=== PATIENT | female | born 1985 | race American Indian/Alaskan Native ===

== ENCOUNTER 2021-02-10 06:02 | Inpatient (IN) | payer BC ==
--- NOTE | 2021-02-07 10:24 | Anesthesia Consultation ---
Anesthesia Consult and Med Hx Date of service: 02/10/21 - Airway Anesthetic Teeth Evaluation: Good ROM Head & Neck: Adequate Mental/Hyoid Distance: Adequate Mallampati Class: Class II Intubation Access Assessment: Probably Good - Pulmonary Exam CTA: Yes - Cardiac Exam Cardiac Exam: RRR - Pre-Operative Health Status ASA Pre-Surgery Classification: ASA2 Proposed Anesthetic Plan: General Nerve Block: TAP - Pulmonary Hx Smoking: Yes (1/4 PPD) Hx Asthma: Yes (childhood; no recent inhaler use) Hx Respiratory Symptoms: No - Cardiovascular System Hx Hypertension: No - Central Nervous System CVA: No - Endocrine Hx Renal Disease: No Hx Liver Disease: No Hx Insulin Dependent Diabetes: No Hx Non-Insulin Dependent Diabetes: No Hx Thyroid Disease: No - Other Systems Hx Obesity: No - Additional Comments Anesthesia Medical History Comments: No prior GA. No FHx anesthetic complications.
[2021-02-07 10:35] LABS: Basophils % (Auto) 0.4 % (0.0-1.8); Eosinophils # (Auto) 0.1 K/mm3 (0.0-0.4); Eosinophils % (Auto) 2.4 % (0.0-4.3); Hematocrit 29.7 % (30.3-42.9); Hemoglobin 9.5 gm/dl (10.1-14.3); Lymphocytes % (Auto) 39.9 % (13.4-35.0); Mean Corpuscular HGB Conc 32 % (30-34); Mean Corpuscular Volume 78 fl (79-97); Monocytes # (Auto) 0.3 K/mm3 (0.0-0.8); Monocytes % (Auto) 6.4 % (0.0-7.3); Platelet Count 409 K/mm3 (140-440); Red Blood Count 3.82 M/mm3 (3.65-5.03)
--- NOTE | 2021-02-07 10:35 | History and Physical Report ---
History of Present Illness Date of examination: 02/04/21 History of present illness: Patient has been reassessed/reevaluated. H&P has been reviewed. No interval changes. This is a 35 years old female who presents with uterine fibroids. She complains of pelvic pain, pelvic pressure and menorrhagia, but denies abdominal pain, abdominal pressure and intermenstrual bleeding. Treatment tried to date includes NSAIDs. Prior to today's visit the patient has had US of pelvis which revealed large leiomyomas measuring 8cm and 9cm in diameter. Patient's symptoms when present disrupts her normal daily activities Patient desires definitive treatment . Vital Signs: Patient Profile: 35 Years Old Female LMP: 01/18/2021 Height: 62 inches Weight: 143 pounds BMI: 26.15 Temp: 97.6 degrees F BP sittin / 80 (left arm) Menstrual History: LMP (date): 01/18/2021 Current Method of Contraception: None Date of Last Pap Smear: 11/01/2020 Past History : 0 Term Births: 0 Premature Births: 0 Living Children: 0 Para: 0 Mult. Births: 0 Prev : 0 Aborta: 0 Elect. Ab: 0 Spont. Ab: 0 Ectopics: 0 [employer] History Operations: Negative Past Surgical History Abnormal PAP: negative Uterine Anomaly: positive fibroids Infection History HIV Risk Eval: no Personal hx. of genital herpes: no Hx of STD: gonorrhea Current Allergies (reviewed today): No known allergies Past Medical History: Peptic Ulcer Disease (2011) hospitalized Fibroids (10/2020) Past Surgical History: Negative Past Surgical History Family History Summary: Other Family Member - Has No Family History of Ovarvian Cancer - Entered On: 11/01/2020 Other Family Member - Has Family History Colon Cancer - Entered On: 11/01/2020 Other Family Member - Has No Family History of Breast Cancer - Entered On: 11/01/2020 Other Family Member - Has Family History of Renal Disease - Entered On: 11/01/2020 Other Family Member - Has Family History of Hypertension - Entered On: 11/01/2020 Other Family Member - Has Family History of CVA or Stroke - Entered On: 11/01/2020 Social History: Marital Status: Single Children: 0 Occupation: commercial parts professional Smoking History: Patient currently smokes every day. Risk Factors: Smoked Tobacco Use: Current every day smoker Cigarettes: Yes -- 4 cigs per day,Smokeless Tobacco Use: Never Counseled to quit/cut down: no Passive smoke exposure: no Drug use: no HIV high-risk behavior: no Caffeine use: 0 drinks per day Alcohol use: yes Type: occ/ wine Exercise: yes Times per week: 6 Seatbelt use: 100 % PAP Smear History: Date of Last PAP Smear: 11/01/2020 Review of Systems General Complains of fatigue. Denies fever, chills, sweats, anorexia, weakness, malaise, weight loss and sleep disorder. Complains of urinary frequency, menorrhagia, pelvic pain and painful periods. Denies vaginal discharge, incontinence, dysuria, hematuria, amenorrhea, abnormal vaginal bleeding, genital sores, decreased libido, painful sex, urinary urgency, hot flashes, vaginal dryness, vaginal itching and vaginal odor. CV Denies chest pains, palpitations, syncope, dyspnea on exertion, orthopnea, PND and peripheral edema. Resp Denies cough, dyspnea at rest, excessive sputum, hemoptysis, wheezing and pleurisy. GI Denies nausea, vomiting, diarrhea, constipation, change in bowel habits, abdominal pain, melena, hematochezia, jaundice, gas/bloating, indigestion/heartburn, dysphagia and odynophagia. Breast Denies left breast lump, right breast lump, nipple discharge, bloody discharge from nipple, breast pain, abnormal mammogram and breast enlargement. Psych Denies depression, anxiety, irritability and mood swings. Past History Past Medical History: other (SEE HPI FOR DETAILS) Past Surgical History: Other (SEE HPI FOR DETAILS) Social history: single, smoking, full code, other (SEE HPI FOR DETAILS) Family history: other (SEE HPI FOR DETAILS) Medications and Allergies Allergies Allergy/AdvReac Type Severity Reaction Status Date / Time No Known Allergies Allergy Verified 02/04/21 14:22 Home Medications Medication Instructions Recorded Confirmed Last Taken Type Famotidine [Acid-Pep] 20 mg PO DAILY PRN 02/04/21 02/04/21 Unknown History Ibuprofen 800 mg PO PRN 02/04/21 02/04/21 Unknown History Malanta 1 dose PO 1XW 02/04/21 Unknown History Active Meds: Active Medications Acetaminophen (Acetaminophen 500 Mg Tab) 1,000 mg PO PREOP AILYN Celecoxib (Celecoxib 200 Mg Cap) 200 mg PO PREOP NR Fentanyl (Fentanyl 100 Mcg/2 Ml Inj) 100 mcg IV ONCE PRN PRN Reason: sedation for nerve block Gabapentin (Gabapentin 300 Mg Cap) 300 mg PO PREOP NR Cefazolin Sodium (Ancef/Sterile Water 2 Gm/20 Ml) 2 gm in 20 mls @ 80 mls/hr IV PREOP NR; Protocol Stop: 02/10/21 23:59 Lactated Ringer's (Lactated Ringers) 1,000 mls @ 100 mls/hr IV DIRECT AILYN Stop: 02/10/21 23:59 Midazolam HCl (Midazolam 2 Mg/2 Ml Inj) 2 mg IV PREOP NR Scopolamine (Scopolamine Transdermal Patch 72 Hr) 1 each TD PREOP NR Review of Systems Constitutional: other (SEE HPI FOR DETAILS) Exam - Physical Exam Narrative exam: HEENT: normocephalic, no lesions or deformities Skin no significant abnormal lesions or rashes Chest: respiratory effort normal, clear to auscultation CV: regular, normal S1-S2, no murmur, no rub, no gallop Abdomen: normal bowel sounds, soft, nontender, no HSM Neuro: no gross anomalities Extremities: no clubbing, cyanosis, or edema [employer] Exams Vulva/Vagina: No lesions, normal BUS, normal rugae Cervix: No lesions; no cervical motion tenderness Uterus: Enlarged 16- 18 week size Adnexae: Unable to palpate due to uterine size Rectovaginal: exam defered Results - Labs CBC & Chem 7: 02/07/21 09:45 02/07/21 08:00 Assessment and Plan - Patient Problems (1) Intramural leiomyoma of uterus Current Visit: No Status: Acute Plan to address problem: Diagnosis explained to patient . Questions answered. Discussed with patient various medical, surgical and radiological therapies common for treatment including expectant management, myomectomy hysterectomy and uterine artery embolization Patient desires to retain future fertility. She desires myome ctomy. Discussed risks and benefits of laparotomy and robotic assisted approaches Patient desires transabdominal myomectomy. Discuss the risks of the surgery including infection, bleeding possibly heavy enough to require a blood transfusion, possible damage to bowel, bladder or ureter. Patient understands that there is a possibility that a hysterectomy maybe indicated for severe bleeding not resoved with conservative measures. Her questions were answered. Patient understands and desires to proceed (2) Menorrhagia Current Visit: No Status: Acute Qualifiers: Menorrhagia type: with regular cycle Qualified Code(s): N92.0 - Excessive and frequent menstruation with regular cycle Plan to address problem: Probably secondary to # 1 (3) Dysmenorrhea Current Visit: No Status: Acute Plan to address problem: Probably secondary to # 1 (4) Pelvic pain Current Visit: No Status: Acute Plan to address problem: Probably secondary to # 1 (5) Chronic blood loss anemia Current Visit: No Status: Acute Plan to address problem: Probably secondary to # 2 (6) Peptic ulcer disease Current Visit: No Status: Chronic
[2021-02-07 10:43] LABS: Red Cell Distribution Width 21.5 % (13.2-15.2)
[2021-02-07 10:53] LABS: Blood Urea Nitrogen 11 mg/dL (7-17); Calcium 9.3 mg/dL (8.4-10.2); Hemolysis Index 0
[2021-02-07 11:16] LABS: BUN/Creatinine Ratio 16
[~2021-02-10 06:02] MED LIST: ACETAMINOPHEN 500 MG TAB PO SCH; CELECOXIB 200 MG CAP PO NR; GABAPENTIN 300 MG CAP PO NR; LACTATED RINGERS 1,000 ML IV SCH; MIDAZOLAM 2 MG/2 ML INJ IV NR; SCOPOLAMINE TRANSDERMAL PATCH 72 HR TD NR; fentaNYL 100 MCG/2 ML INJ IV PRN
[2021-02-10] MEDS ORDERED: ceFAZolin/Water 2 GM/20 ML 2 GM/20 ML SYRINGE IV NR (07:00)
[2021-02-10] MEDS ORDERED: dexAMETHasone 20 MG/5 ML VIAL ONE ×3 (07:12→08:30)
[2021-02-10] MEDS ORDERED: BUPIVACAINE/PF (0.25%) 2.5 MG/ML 30 ML VIAL INFILTRATI ONE (07:12)
[2021-02-10] MEDS ORDERED: cloNIDine/PF 1,000 MCG/10 ML VIAL EP ONE (07:13)
[2021-02-10] MEDS ORDERED: fentaNYL 100 MCG/2 ML INJ ONE (07:16)
[2021-02-10] MEDS ORDERED: propofoL 200 MG/20 ML VIAL IV ONE (07:17)
--- NOTE | 2021-02-10 07:21 | Anesthesia Day of Surgery ---
Anesthesia Day of Surgery - Day of Surgery Patient Examined: Yes Patient H&P Reviewed: Yes Patient is NPO: Yes
[2021-02-10] MEDS ORDERED: CITRIC ACID-SOD CITRATE 500 ML IV ONE (07:25)
[2021-02-10] MEDS ORDERED: ONDANSETRON 4 MG/2 ML INJ IV PRN (07:30)
[2021-02-10] MEDS ORDERED: SODIUM CHLORIDE 0.9% 100 ML ONE (07:32)
[2021-02-10] MEDS ORDERED: VASOPRESSIN 20 UNIT/1 ML INJ ONE (07:32)
[2021-02-10] MEDS ORDERED: ROCURONIUM 50 MG/5 ML INJ IV ONE (08:29)
[2021-02-10] MEDS ORDERED: LIDOCAINE MPF (2%) 20 MG/1 ML VIAL 5 ML ONE (08:29)
[2021-02-10] MEDS ORDERED: SUCCINYLCHOLINE CHLORIDE 200 MG/10 ML INJ MDV ONE (08:30)
[2021-02-10] MEDS ORDERED: ONDANSETRON 4 MG/2 ML INJ ONE (08:30)
[2021-02-10] MEDS ORDERED: SODIUM CHLORIDE 0.9% 100 ML IVPB IV ONE (08:40)
[2021-02-10] MEDS ORDERED: VASOPRESSIN 20 UNIT/1 ML INJ IM ONE (08:40)
[2021-02-10] MEDS ORDERED: SODIUM CHLORIDE 0.9% IRR 1,500 ML BOTTLE IR ONE (08:40)
[2021-02-10] MEDS ORDERED: CITRIC ACID-SOD CITRATE SOLN 500 ML IV SOLN IV ONE (08:41)
[2021-02-10] MEDS ORDERED: KETOROLAC 30 MG/1 ML INJ ONE (10:20)
--- NOTE | 2021-02-10 10:51 | Operative Report ---
Operative Report Operative Report: Date of procedure: February 10, 2021 Pre-operative diagnosis: Symptomatic leiomyomata with menorrhalgia and anemia Post-operative diagnosis: Same Procedure name(s): Transabdominal myomectomy] Surgeon: Jude Ba MD Fiber Locking Supervisor: Bhavya Figueroa, surgical assistant certified Anesthesia: General endotracheal EBL: 150 cc, Cell Saver was available but did not require any return given the patient Complications: None Findings: Patient with uterus approximately 16 weeks in size with multiple lei omyomata largest 1 fundal posterior approximately 9 cm at anterior myoma there was very vascular at the lower uterine segment approximately 7 to 8 cm in diameter patient with other myomas were a total of 14 being removed sizes ranging from half centimeters approximately 2 to 3 cm in size. The endometrial cavity was entered during this procedure. All future pregnancies must be deliv ered by section Specimen(s): Leiomyomata Procedure: Patient was brought to the operating room. Gen. anesthesia was induced without difficulty. Patient was prepped and draped in usual sterile manner. A Pfannenstiel incision was made with a scalpel. This incision was taken on the fascia, the fascia was nicked in the midline and this incision was extended laterally with Armstrong scissors. The rectus muscles were from the overlying fascia both bluntly and sharply cephalically and caudally. The rectus muscles were sharply and bluntly. Peritoneum was grasped with 2 hemostats lifted high and incised with Metzenbaum scissors with no evidence of internal organ damage. This incision was extended vertically with care not to damage the bladder below. The fibroid uterus was pulled through this incision. The uterus as described above. Pitressin was injected at the base of the fibroids were identified. A midline incision and uterus was made starting with that anterior myoma through the fundus and through the midline posterior uterine wall. The vast majority of the myomas were removed through this incision both sharply and bluntly. The endometrial cavity was entered during this process. The defect was closed in layers starting with a running closure of the endometrial cavity with care not to compromise the cavity. The myometrium was then closed with interrupted 0 Vicryl with good hemostasis. The serosa was reapproximated with a baseball stitch and attempt to try to prevent postoperative adhesions. The other small pedunculated fibroid was removed by cauterizing the defect was closed with a [id number] suture. The closures were hemostatic. The pelvis was copiously irrigated and found to be hemostatic. All instruments were removed. Interceed was placed over the suture line to prevent future adhesions. The rectus muscles then reapproximated with 0 Vicryl. This closure was hemostatic. Fascia was then closed in running manner with 0 Vicryl. This closure was hemostatic. The skin was reapproximated subcuticular with 4-0 Monocryl. Patient tolerated procedure and was awakened in operating room. Patient was accompanied to recovery room in good condition.. All future pregnancies must be delivered by section]
[2021-02-10] MEDS ORDERED: FAMOTIDINE 20 MG TAB PO PRN (10:57)
[2021-02-10] MEDS: HYDROmorphone 1 MG/1 ML INJ IV PRN ×3 (11:24→11:44)
[2021-02-10] MEDS ORDERED: GLYCOPYRROLATE 0.4 MG/2 ML INJ ONE (11:30)
[2021-02-10] MEDS ORDERED: NEOSTIGMINE 10MG/10 ML INJ MDV ONE (11:30)
[2021-02-10] MEDS ORDERED: MAGNESIUM HYDROXIDE (MOM) ORAL LIQD UDC PO PRN (13:42)
[2021-02-10] MEDS ORDERED: ACETAMINOPHEN 325 MG TAB PO PRN (13:42)
[2021-02-10] MEDS: KETOROLAC 30 MG/1 ML INJ IV SCH ×2 (14:05→21:55)
--- NOTE | 2021-02-10 14:52 | Post Anesthesia Evaluation ---
- Post Anesthesia Evaluation Patient Participated: Yes Airway Patent: Yes Stable Respiratory Function: Yes Nausea/Vomiting: No Temp > 96.8F: Yes Pain Manageable: Yes Adequeate Hydration: Yes Anesthesia Complications: No ([id number])
[2021-02-10] MEDS: ceFAZolin/NS 1 GM/50 ML 1 GM/50 ML BAG IV SCH ×2 (16:10→23:20)
--- NOTE | 2021-02-10 17:55 | Event Note ---
Date: 02/10/21 Day of surgery. Discuss operative findings with patient and questions answered. Patient without fever. Will have up in a chair this evening good urine output. We will continue routine postoperative care. Patient denies any nausea vomiting.
[2021-02-10] MEDS: oxyCODONE /ACETAMINOPHEN 5-325MG TAB PO PRN (18:05)
[2021-02-10] MEDS: D5W/LACTATED RINGERS 1,000 ML IV SCH (18:24)
[2021-02-10] MEDS: DOCUSATE SODIUM 100 MG CAP PO SCH (21:55)
[2021-02-11] MEDS: oxyCODONE /ACETAMINOPHEN 5-325MG TAB PO PRN ×2 (01:01→09:07)
[2021-02-11] MEDS: D5W/LACTATED RINGERS 1,000 ML IV SCH (01:04)
[2021-02-11] MEDS: KETOROLAC 30 MG/1 ML INJ IV SCH (05:21)
[2021-02-11 08:08] LABS: Hematocrit 22.6 % (30.3-42.9)
[2021-02-11] MEDS: DOCUSATE SODIUM 100 MG CAP PO SCH ×2 (09:07→21:51)
--- NOTE | 2021-02-11 09:21 | Progress Note ---
Assessment and Plan - Patient Problems (1) Intramural leiomyoma of uterus Current Visit: No Status: Acute (2) Menorrhagia Current Visit: No Status: Acute Qualifiers: Menorrhagia type: with regular cycle Qualified Code(s): N92.0 - Excessive and frequent menstruation with regular cycle (3) Dysmenorrhea Current Visit: No Status: Acute (4) Pelvic pain Current Visit: No Status: Acute (5) Chronic blood loss anemia Current Visit: No Status: Acute (6) Peptic ulcer disease Current Visit: No Status: Chronic (7) Status post myomectomy Current Visit: Yes Status: Acute Plan to address problem: Postoperative day #1. Discuss operative findings with patient and questions answered. Patient without fever. Excellent urine output. We'll ambulate in halls. We will continue routine postoperative care. Patient's postoperative hematocrit 22%. We will monitor patient ambulation and watch for signs symptoms of orthostatic changes. Discussed with the patient possibility of blood barnes sfusion if symptomatic. Will recheck hematocrit and hemoglobin at noon. (8) Status post laparotomy Current Visit: Yes Status: Acute (9) Anemia Current Visit: Yes Status: Acute Qualifiers: Iron deficiency anemia type: chronic blood loss Subjective Date of service: 02/11/21 Patient Reports: Positive: feels better, still having pain, pain is less, tolerating liquids well, tolerating a regular diet, flatus, no bowel movement, afebrile (Patient's Adams recently removed) Objective Vital Signs - 12hr 02/10/21 02/11/21 02/11/21 23:58 05:19 07:48 Temperature 97.6 F 98.7 F 98.5 F Pulse Rate 64 72 Respiratory 20 20 18 Rate Blood Pressure 108/48 95/50 102/43 O2 Sat by Pulse 97 100 Oximetry - General physical appearance well developed, well nourished - Respiratory normal respiratory effort - Abdomen soft, tender (Appropriately postop day 1), bowel sounds normal, distended (Mildly), surgical scars (Healing well without any signs of infection) - Integumentary no rash, no growths, no abnormal pigmentation - Psychiatric oriented to time, oriented to person, oriented to place, speech is normal, memory intact - Labs 02/11/21 07:12 02/07/21 08:00
[2021-02-11] MEDS ORDERED: IBUPROFEN 800 MG TAB PO PRN (10:51)
[2021-02-11 13:32] LABS: Hematocrit 20.3 % (30.3-42.9); Hemoglobin 6.3 gm/dl (10.1-14.3)
[2021-02-11] MEDS ORDERED: SODIUM CHLORIDE 0.9% 500 ML 500 ML IV NR (14:43)
[2021-02-11] MEDS ORDERED: diphenhydrAMINE 50 MG CAP PO NR (14:45)
[2021-02-11] MEDS ORDERED: ACETAMINOPHEN 500 MG TAB PO NR (14:46)
--- NOTE | 2021-02-11 14:47 | Event Note ---
Date: 02/11/21 Discussed with the patient via telephone her hemoglobin and hematocrit results. Patient denied any dizziness when she was up walking but did complain of fatigue. Discussed indications for blood transfusion and the risks of hypovolemia. Discussed the risks of transfusion including transfusion reaction in the low risk of patient. Patient agrees to move forward with blood transfusion.
--- NOTE | 2021-02-11 16:52 | Progress Note ---
Assessment and Plan - Patient Problems (1) Intramural leiomyoma of uterus Current Visit: No Status: Acute (2) Menorrhagia Current Visit: No Status: Acute Qualifiers: Menorrhagia type: with regular cycle Qualified Code(s): N92.0 - Excessive and frequent menstruation with regular cycle (3) Dysmenorrhea Current Visit: No Status: Acute (4) Pelvic pain Current Visit: No Status: Acute (5) Chronic blood loss anemia Current Visit: No Status: Acute (6) Peptic ulcer disease Current Visit: No Status: Chronic (7) Status post myomectomy Current Visit: Yes Status: Acute (8) Status post laparotomy Current Visit: Yes Status: Acute (9) Anemia Current Visit: Yes Status: Acute Qualifiers: Iron deficiency anemia type: chronic blood loss (10) Acute blood loss anemia Current Visit: Yes Status: Acute Plan to address problem: Patient is presently receiving blood transfusion we will recheck H&H post transfusion. Patient has no evidence of active bleeding. Subjective Date of service: 02/11/21 Interval history: Patient resting her first unit of packed red blood cells infusing Objective - Constitutional Vitals: Vital Signs - 12hr 02/11/21 02/11/21 02/11/21 05:19 07:48 12:08 Temperature 98.7 F 98.5 F 98.5 F Pulse Rate 72 84 Respiratory 20 18 18 Rate Blood Pressure 95/50 102/43 89/47 O2 Sat by Pulse 100 100 Oximetry 02/11/21 02/11/21 16:26 16:41 Temperature 97.7 F 98.1 F Pulse Rate 74 75 Respiratory 19 19 Rate Blood Pressure 99/54 84/33 O2 Sat by Pulse Oximetry General appearance: Present: no acute distress - Respiratory Respiratory effort: normal - Gastrointestinal General gastrointestinal: Present: soft - Genitourinary Female genitourinary: deferred - Integumentary Integumentary: clear, warm, dry - Labs CBC & Chem 7: 02/11/21 12:52 02/07/21 08:00 Labs: Abnormal lab results 02/10/21 02/11/21 02/11/21 Range/Units 07:00 07:12 12:52 Hgb 7.0 L 6.3 L (10.1-14.3) gm/dl Hct 22.6 L 20.3 L (30.3-42.9) % Crossmatch See Detail Medications & Allergies - Medications Allergies/Adverse Reactions: Allergies latex Allergy (Verified 02/10/21 16:15) Swelling Home Medications: Home Medications Medication Instructions Recorded Confirmed Last Taken Type Ibuprofen 800 mg PO PRN 02/04/21 02/10/21 02/07/21 09:00 History Malanta 1 dose PO 1XW 02/04/21 02/04/21 09:00 History RX: Famotidine [Acid-Pep] 20 mg PO DAILY PRN 02/04/21 02/10/21 02/07/21 09:00 History Ibuprofen [Motrin] 800 mg PO TID PRN #30 tablet 02/10/21 Unknown Rx RX: Ferrous Sulfate [Feosol 325 MG 325 mg PO BID #60 tablet 02/10/21 Unknown Rx tab] oxyCODONE /ACETAMINOPHEN [Percocet 1 - 2 tab PO Q6HR PRN #20 tablet 02/10/21 Unknown Rx 5/325 mg] Active Medications: Generic Name Dose Route Start Last Admin Trade Name Sandy PRN Reason Stop Dose Admin Acetaminophen 650 mg 02/10/21 13:42 Acetaminophen 325 Mg Tab PO Q4H PRN Pain MILD(1-3)/Fever >100.5/ROMO Acetaminophen 500 mg 02/11/21 14:46 02/11/21 15:11 Acetaminophen 500 Mg Tab PO 02/11/21 23:59 500 mg PRETR NR Administration Diphenhydramine HCl 50 mg 02/11/21 14:45 02/11/21 15:10 Diphenhydramine 50 Mg Cap PO 02/11/21 23:59 50 mg PRETR NR Administration Docusate Sodium 100 mg 02/10/21 22:00 02/11/21 09:07 Docusate Sodium 100 Mg Cap PO 100 mg BID AILYN Administration Famotidine 20 mg 02/10/21 10:57 02/10/21 13:16 Famotidine 20 Mg Tab PO 20 mg DAILY PRN Administration ACID REFLUX Dextrose/Lactated Ringer's 1,000 mls @ 125 mls/hr 02/10/21 14:42 02/11/21 01:04 D5lr IV 125 mls/hr DIRECT AILYN Administration Sodium Chloride 500 mls @ 0 mls/hr 02/11/21 14:43 02/11/21 15:10 Nacl 0.9% 500 Ml IV 02/11/21 23:59 50 mls/hr ONCE NR Administration As Directed Ibuprofen 800 mg 02/11/21 10:51 Ibuprofen 800 Mg Tab PO Q8H PRN Pain, Moderate (4-6) Magnesium Hydroxide 30 ml 02/10/21 13:42 Magnesium Hydroxide (Mom) Oral Liqd Udc PO Q4H PRN Constipation Oxycodone/Acetaminophen 2 tab 02/10/21 13:42 02/11/21 09:07 Oxycodone /Acetaminophen 5-325mg Tab PO 2 tab Q4H PRN Administration Pain, Moderate (4-6) Sodium Chloride 10 ml 02/10/21 13:42 Sodium Chloride 0.9% 10 Ml Flush Syringe IV PRN PRN LINE FLUSH
[2021-02-11] MEDS ORDERED: PROMETHAZINE 25 MG TAB PO ONE (22:28)
[2021-02-12 00:42] LABS: Hematocrit 24.3 % (30.3-42.9)
[2021-02-12] MEDS: oxyCODONE /ACETAMINOPHEN 5-325MG TAB PO PRN ×3 (05:30→15:58)
[2021-02-12] MEDS: DOCUSATE SODIUM 100 MG CAP PO SCH (11:03)
--- NOTE | 2021-02-12 12:01 | Progress Note ---
Assessment and Plan - Patient Problems (1) Status post myomectomy Current Visit: Yes Status: Acute Plan to address problem: Patient with return of normal bowel function incisions healing well. We will continue normal postoperative care (2) Status post laparotomy Current Visit: Yes Status: Acute (3) Acute blood loss anemia Current Visit: Yes Status: Acute Plan to address problem: Patient hemoglobin is 8 after blood transfusion. Will monitor for signs of hypovolemia. Will ambulate this afternoon this patient stable will consider discharge this afternoon. (4) Intramural leiomyoma of uterus Current Visit: No Status: Acute (5) Menorrhagia Current Visit: No Status: Acute Qualifiers: Menorrhagia type: with regular cycle Qualified Code(s): N92.0 - Excessive and frequent menstruation with regular cycle (6) Dysmenorrhea Current Visit: No Status: Acute (7) Pelvic pain Current Visit: No Status: Acute (8) Chronic blood loss anemia Current Visit: No Status: Acute (9) Peptic ulcer disease Current Visit: No Status: Chronic (10) Anemia Current Visit: Yes Status: Acute Qualifiers: Iron deficiency anemia type: chronic blood loss Subjective Date of service: 02/12/21 Patient Reports: Positive: feels better, still having pain, pain is less, tolerating a regular diet (Patient without any nausea but does not like the taste of food), voiding w/o difficulty, flatus, afebrile, other (Patient has only been up to the bathroom since her blood transfusion but no complaints of dizziness) Objective Vital Signs - 12hr 02/12/21 02/12/21 02/12/21 00:16 05:10 08:50 Temperature 98.5 F 98.9 F 98.2 F Pulse Rate 96 H 81 92 H Respiratory 20 20 20 Rate Blood Pressure 119/72 109/63 Blood Pressure 104/57 [Right] O2 Sat by Pulse 93 96 100 Oximetry - General physical appearance well developed, well nourished - Respiratory normal respiratory effort - Abdomen soft, tender (Appropriately), bowel sounds normal, distended (Slightly), surgical scars (Healing well) - Integumentary no rash, no growths, no abnormal pigmentation - Neurologic normal coordination - Psychiatric oriented to time, oriented to person, oriented to place, speech is normal, memory intact - Labs 02/12/21 00:26 02/07/21 08:00
--- NOTE | 2021-02-12 15:54 | Discharge Summary ---
Providers - Providers Date of Admission: 02/10/21 06:02 Date of discharge: 02/12/21 Attending physician: MERYL COVINGTON Primary care physician: [employer] Hospitalization Reason for admission: Symptomatic leiomyomata with dysmenorrhea menorrhagia and anemia Condition: Good Procedures: Transabdominal myomectomy and transfusion of 1 unit of packed red blood cells Hospital course: Patient was admitted and underwent above procedure without complications. Her post operative course was complicated by postoperative hemoglobin less than 7. The patient received 1 unit of packed red blood cells. She was afebrile throughout. Patient postoperative day 1 hematocrit 20% which for 24% after the blood transfusion. Patient had no orthostatic symptoms. Patient was tolerating regular diet and voiding without difficulty at time of discharge. Patient incision was healing well without evidence of infection. Disposition: DC-01 TO HOME OR SELFCARE Final Discharge Diagnosis (Prints w/discharge instructions): Symptomatic leiomyomata and anemia Time spent for discharge: 20 minutes - Discharge Diagnoses (1) Status post myomectomy Status: Acute (2) Status post laparotomy Status: Acute (3) Acute blood loss anemia Status: Acute (4) Intramural leiomyoma of uterus Status: Acute (5) Menorrhagia Status: Acute Qualifiers: Menorrhagia type: with regular cycle Qualified Code(s): N92.0 - Excessive and frequent menstruation with regular cycle (6) Dysmenorrhea Status: Acute (7) Pelvic pain Status: Acute (8) Chronic blood loss anemia Status: Acute (9) Peptic ulcer disease Status: Chronic (10) Anemia Status: Acute Qualifiers: Iron deficiency anemia type: chronic blood loss Core Measure Documentation - Palliative Care Palliative Care/ Comfort Measures: Not Applicable - Core Measures Any of the following diagnoses?: none Exam - Constitutional Vitals: Temp Pulse Resp BP Pulse Ox 98.2 F 92 H 20 104/57 100 02/12/21 08:50 02/12/21 08:50 02/12/21 08:50 02/12/21 08:50 02/12/21 08:50 General appearance: Present: no acute distress - Respiratory Respiratory effort: normal - Extremities Extremities: no ischemia Peripheral Pulses: within normal limits - Abdominal General gastrointestinal: Present: soft, tender (Appropriately postop), normal bowel sounds, other (Incision healing well without evidence of infection) Female genitourinary: Present: deferred - Rectal Rectal Exam: deferred - Integumentary Integumentary: Present: clear, warm, dry - Musculoskeletal Musculoskeletal: gait normal, strength equal bilaterally - Psychiatric Psychiatric: appropriate mood/affect, intact judgment & insight - Neurologic Neurologic: moves all extremities Plan Activity: advance as tolerated Diet: regular Wound: open to air Additional Instructions: Patient office for fever chills nausea vomiting or pain uncontrolled by pain relief. Patient instructed no heavy lifting times 6 weeks. No sex for 6 weeks. Patient all future pregnancies should be delivered by section Follow up with: PRIMARY CARE, [Primary Care Provider] - 7 Days Prescriptions: Ferrous Sulfate [Feosol 325 MG tab] 325 mg PO BID #60 tablet Ibuprofen [Motrin] 800 mg PO TID PRN #30 tablet PRN Reason: Pain oxyCODONE /ACETAMINOPHEN [Percocet 5/325 mg] 1 - 2 tab PO Q6HR PRN #20 tablet PRN Reason: Pain
[2021-02-12 16:07] VITALS: BP 117/71
== END 2021-02-12 17:37 | disposition home or self-care (01) | DRG 742 ==
LOC: 3A 06:02 → OB 11:20
PROVIDERS: ADMIT Obstetrics & Gynecology; ATTEND Obstetrics & Gynecology
PROC: 0UB90ZZ Excision of Uterus, Open Approach (ICD-10-PCS; principal; 2021-02-10)
PROC: 30233N1 Transfusion of Nonautologous Red Blood Cells into Peripheral Vein, Percutaneous Approach (ICD-10-PCS; 2021-02-11)
DX: D25.1 Intramural leiomyoma of uterus (principal); D62 Acute posthemorrhagic anemia; N92.0 Excessive and frequent menstruation with regular cycle; N94.6 Dysmenorrhea, unspecified; F17.210 Nicotine dependence, cigarettes, uncomplicated; Z20.822 Contact with and (suspected) exposure to COVID-19; K27.7 Chronic peptic ulcer, site unspecified, without hemorrhage or perforation; Z91.040 Latex allergy status
CPT/HCPCS: 36415; 64450; 80048; 84703; 85014; 85018; 85025; 86850; 86900; 86901; 86920; 88305; 99406; G0378; C1765; J0330; J0690; J0735; J1100; J1170; J1885; J2250; J2405; J2704; J2710; J3010; J7040; J7120; J7121; P9016; Q0169; U0003